=== PATIENT | male | born 1995 | race Two or more races ===

== ENCOUNTER 2022-01-29 08:34 | Emergency (ER) | payer OTHER ==
[~2022-01-29] VITALS: Ht 167.6 cm; Wt 56.8 kg
[2022-01-29] MEDS ORDERED: PERTUSS(ACELL),DIPH,TET VAC/PF 0.5 ML SYRINGE IM. ONE (09:30)
[2022-01-29 10:18] LABS: COVID AG,FIA SOURCE NASOPHARYNGEAL
[2022-01-29] MEDS ORDERED: GUAIFDM PO (10:47)
[2022-01-29] MEDS ORDERED: IBUP-1554 PO (10:47)
[2022-01-29] MEDS ORDERED: ACET-66 PO (10:47)
[2022-01-29] MEDS ORDERED: HYDROGEN PEROXIDE 118 ML SOLUTION TP ONE (11:00)
[2022-01-29] MEDS ORDERED: ACETAMINOPHEN 500 MG TABLET PO ONE (11:00)
[2022-01-29 11:17] VITALS: BP 111/71
== END 2022-01-29 11:19 | disposition home or self-care (01) ==
LOC: EMS 08:37
DX: S91.052A Open bite, left ankle, initial encounter (principal); S90.512A Abrasion, left ankle, initial encounter; J06.9 Acute upper respiratory infection, unspecified; Z20.822 Contact with and (suspected) exposure to COVID-19; W54.0XXA Bitten by dog, initial encounter; Y93.89 Activity, other specified; Y92.89 Other specified places as the place of occurrence of the external cause; Y99.8 Other external cause status
CPT/HCPCS: 90471; 90715; 99283